=== PATIENT | male | born 1950 | race Caucasian/White ===

== ENCOUNTER 2021-10-13 09:46 | Inpatient (IN) | payer OTHER, MEDICARE ==
[~2021-10-13] VITALS: Ht 177.8 cm; Wt 61.2 kg
[~2021-10-13 09:46] MED LIST: ASPI81CH PO; Percocet 5-3251 EACH PO
[2021-10-13] MEDS ORDERED: OMEGA-3 FISH O1 EAC6 (10:14)
[2021-10-13 14:02] LABS: Alanine Aminotransfer (ALT/SGP 31 U/L (12-78); Albumin, Blood 3.5 g/dL (3.4-5.0); Albumin/Globulin Ratio 1.1 (0.8-1.8); Alk Phos 110 U/L (50-136); Anion Gap 5 mmol/L (6-16); Aspartate Aminotrans (AST/SGOT 17 U/L (12-37); BASOPHILS ABSOLUTE AUTO 0.05 K/mm3 (0.00-0.23); BASOPHILS PERCENT AUTO 0 % (0-2); Bilirubin, Total 0.7 mg/dL (0.1-1.0); Blood Urea Nitrogen 23 mg/dL (8-24); Bun/Creatinine Ratio 31.2 (12.0-20.0); CO2, Blood 28 mmol/L (21-32); Chloride, Blood 107 mmol/L (98-108); Creatinine, Blood 0.74 mg/dL (0.60-1.20); EOSINOPHILS ABSOLUTE AUTO 0.03 K/mm3 (0.00-0.68); EOSINOPHILS PERCENT AUTO 0 % (0-6); Globulin, Blood 3.1 g/dL (2.2-4.0); Glomerular Filtration Rate >60 (60-); Glucose, Blood 109 mg/dL (70-99); Hematocrit 37.6 % (37.0-53.0); Hemoglobin 12.9 g/dL (13.5-17.5); IMMATURE GRAN PERCENT AUTO 1 % (0-1); LYMPHOCYTES ABSOLUTE AUTO 0.89 K/mm3 (0.84-5.20); LYMPHOCYTES PERCENT AUTO 5 % (21-46); MONOCYTES ABSOLUTE AUTO 0.92 K/mm3 (0.16-1.47); MONOCYTES PERCENT AUTO 5 % (4-13); Mean Corpuscular HGB 31.7 pg (26.0-34.0); Mean Corpuscular HGB Conc 34.3 g/dL (31.5-36.5); Mean Corpuscular Volume 92 fL (80-100); Mean Platelet Volume 10.2 fL (9.1-12.4); NEUTROPHILS ABSOLUTE AUTO 15.09 K/mm3 (1.96-9.15); NEUTROPHILS PERCENT AUTO 88 % (41-73); Platelet Count 311 K/mm3 (150-400); Potassium, Blood 4.5 mmol/L (3.5-5.5); RDW Coefficient Variation 12.7 % (11.7-14.2); RDW Standard Deviation 43.1 fL (35.1-46.3); Red Blood Cell Count 4.07 M/mm3 (4.30-5.90); Sodium, Blood 140 mmol/L (136-145); Total Protein, Blood 6.6 g/dL (6.4-8.2); White Blood Cell Count 17.08 K/mm3 (4.00-11.30)
--- NOTE | 2021-10-13 16:10 | NUR ---
DR MONGE INTO SEE PT; SCHWAB's TRACTION APPLIED.
[2021-10-13 21:10] LABS: Influenza A, PCR NEGATIVE (NEGATIVE); Influenza B, PCR NEGATIVE (NEGATIVE); Resp Syncytial Virus, PCR NEGATIVE (NEGATIVE); SARS-Cov-2 (COVID-19) PCR, MMC NEGATIVE (NEGATIVE)
--- NOTE | 2021-10-13 23:19 | NUR ---
NS AT 75 MLHR. STARTED 2319, SCANNED EARLY ANTICIPATING OF SYSTEM TO BE DOWN TONIGHT.
--- NOTE | 2021-10-14 00:17 | NUR ---
SHIFT SUMMARY: PT. AOX4, STATED HE IS VERY COMFORTABLE WITH THE POSITION OF THE LLE & REFUSED ANY PAIN MEDICINE. IV FLUID NS AT 75 ML/HR. STARTED AT 2320 IN ANTICIPATION OF THE COMPUTER SYSTEM THAT WILL BE DOWN AT 0030. VOIDING WELL CLEAR DOMINGA COLORED URINE VIA THE URINAL. NO ACUTE CHANGES NOTED, WILL CONTINUE TO MONITOR. ROUNDING PER POLICY THEN PRN.
[2021-10-14 06:19] LABS: Hematocrit 34.9 % (37.0-53.0); Hemoglobin 11.9 g/dL (13.5-17.5); Mean Corpuscular HGB Conc 34.1 g/dL (31.5-36.5); Mean Corpuscular Volume 94 fL (80-100); Mean Platelet Volume 9.9 fL (9.1-12.4); Platelet Count 252 K/mm3 (150-400); RDW Coefficient Variation 12.7 % (11.7-14.2); RDW Standard Deviation 43.9 fL (35.1-46.3); Red Blood Cell Count 3.72 M/mm3 (4.30-5.90)
[2021-10-14 06:53] LABS: Anion Gap 5 mmol/L (6-16); Blood Urea Nitrogen 30 mg/dL (8-24); Bun/Creatinine Ratio 33.6 (12.0-20.0); CO2, Blood 28 mmol/L (21-32); Calcium, Blood 8.6 mg/dL (8.5-10.1); Chloride, Blood 106 mmol/L (98-108); Creatinine, Blood 0.89 mg/dL (0.60-1.20); Glomerular Filtration Rate >60 (60-); Glucose, Blood 112 mg/dL (70-99); Potassium, Blood 4.3 mmol/L (3.5-5.5); Sodium, Blood 139 mmol/L (136-145)
--- NOTE | 2021-10-14 12:54 | NUR ---
PT SL & TO OR VIA BED
--- NOTE | 2021-10-14 13:27 | NUR ---
THE PARIENT WAS BROUGHT TO D/S FOR HIS PROCEDURE.
--- NOTE | 2021-10-14 18:10 | NUR ---
SHIFT SUMMARY PT RETURNED FROM OR AT 1730. A&O X4, VSS, RA. X1 PRESSURE DRSG TO R HIP, C/D/I. ABLE TO WIGGLE TOES ON SX LEG, STRONG PEDAL PULSES. DENIES PAIN AT THIS TIME. TOLERATING PO WELL. AWAITING PO VOID. WILL REPORT TO ONCOMING RN
--- NOTE | 2021-10-15 03:41 | NUR ---
SUMMARY PT PAIN MANAGED WELL THROUGHOUT SHIFT. PT HAS BEEN VOIDING WELL. PT HAS GOOD SENSATION NOTED. PT HAS BEEN EATING AND DRINKING WELL. PT SLEPT WELL AND IS CURRENTLY SLEEPING. CALL LIGHT IN REACH.
[2021-10-15 04:16] LABS: Hematocrit 30.5 % (37.0-53.0); Hemoglobin 10.4 g/dL (13.5-17.5); Mean Corpuscular HGB 31.7 pg (26.0-34.0); Mean Corpuscular HGB Conc 34.1 g/dL (31.5-36.5); Mean Corpuscular Volume 93 fL (80-100); Mean Platelet Volume 10.3 fL (9.1-12.4); Platelet Count 230 K/mm3 (150-400); RDW Coefficient Variation 12.4 % (11.7-14.2); RDW Standard Deviation 42.4 fL (35.1-46.3); Red Blood Cell Count 3.28 M/mm3 (4.30-5.90); White Blood Cell Count 17.79 K/mm3 (4.00-11.30)
[2021-10-15 04:32] LABS: Anion Gap 6 mmol/L (6-16); Blood Urea Nitrogen 33 mg/dL (8-24); Bun/Creatinine Ratio 35.2 (12.0-20.0); CO2, Blood 25 mmol/L (21-32); Calcium, Blood 8.2 mg/dL (8.5-10.1); Chloride, Blood 105 mmol/L (98-108); Creatinine, Blood 0.94 mg/dL (0.60-1.20); Glomerular Filtration Rate >60 (60-); Glucose, Blood 145 mg/dL (70-99); Potassium, Blood 4.2 mmol/L (3.5-5.5); Sodium, Blood 136 mmol/L (136-145)
--- NOTE | 2021-10-15 10:34 | NUR ---
Pt. is alert and in bed. Pt. welcomes my visit. Pt. displays evidence of being lonely and in need of companionship. Empathitically listen. Pt. is unsettled about being discharged to his sister's home. Normalize the pt. experience. Pt. displayed evidence of agreement and understanding. Prayed with pt. Pt. verbalized gratitude for the spirtiual care visit.
--- NOTE | 2021-10-15 16:32 | NUR ---
DISCHARGE SUMMARY PT A&OX4, VSS, VOIDING WELL, DENIES PAIN/NEED FOR PAIN MEDS, ADITHYA PO, AMB W/FWW & GB, TTWB, UP TO CHAIR T/O SHIFT. DC INSTRUCTIONS PROVIDED. PT REP UNDERSTANDING THOSE INSTRUCTIONS INCLUDING FU APPT WITH SURGEON X2WKS, PCP SCHEDULED FOR 3/3, AND PHYSICAL THERAPY(HE MUST CALL TO SCHEDULE), ALL AMB WITH FWW/TTWB, OK TO SHOWER, AQUACEL APPLIED AND 3 SENT FOR DRESSING CHANGES UNTIL FU WITH SURGEON. AWAITING SISTER TO PICK HIM UP.
--- NOTE | 2021-10-16 13:04 | NUR ---
10/16/21 1304 [place] VERIFICATIONS: EDIT CHART.
== END 2021-10-15 17:52 | disposition home or self-care (01) | DRG 481 ==
LOC: ER 09:46 → SURS 12:58
PROVIDERS: Internal Medicine; Nurse Practitioner Acute Care; Orthopaedic Surgery; Physician Assistant; ADMIT Internal Medicine
PROC: 0QS704Z Reposition Left Upper Femur with Internal Fixation Device, Open Approach (ICD-10-PCS; principal; 2021-10-14 13:30)
DX: S72.002A Fracture of unspecified part of neck of left femur, initial encounter for closed fracture (principal); M97.02XA Periprosthetic fracture around internal prosthetic left hip joint, initial encounter; Z20.822 Contact with and (suspected) exposure to COVID-19; M06.9 Rheumatoid arthritis, unspecified; Z66 Do not resuscitate; W01.0XXA Fall on same level from slipping, tripping and stumbling without subsequent striking against object, initial encounter; Y92.524 Gas station as the place of occurrence of the external cause; Z79.82 Long term (current) use of aspirin; Z79.891 Long term (current) use of opiate analgesic
CPT/HCPCS: 0241U; 36415; 72170; 73552; 73700; 80048; 80053; 83690; 85025; 85027; 86850; 86900; 86901; 96374; 97110; 97161; 97166; 97530; 97535; 99285-25; A9270; C1713; J0171; J0690; J0735; J1100; J1885; J2270; J2370; J2405; J2704; J2795; J3010; J7030; J7120